=== PATIENT | female | born 1945 | race Caucasian/White ===

== ENCOUNTER 2020-04-02 14:49 | Outpatient (CLI) | payer MEDICARE, SELFPAY ==
--- NOTE | ~2020-04-02 | DEXA_ITS ---
Bone Density Report Name: Taylor Grimes Age: 74 Sex: Female Ethnicity: White Date of : 1945 Indication: postmenopausal; height loss; hysterectomy; Referring Provider: Allan Fu Study: Bone densitometry was performed. Exam Date: April 02, 2020 Accession number: [id number] Bone Density: Region BMD T-score Z-score Classification AP Spine (L1-L4) 0.912 -1.2 1.3 Osteopenia Femoral Neck (Left) 0.570 -2.5 -0.3 Osteoporosis Total Hip (Left) 0.721 -1.8 0.1 Osteopenia Total Hip Bilateral Avg 0.728 -1.8 0.2 Osteopenia Femoral Neck (Right) 0.559 -2.6 -0.4 Osteoporosis Total Hip (Right) 0.734 -1.7 0.2 Osteopenia World Health Organization criteria for BMD impression classify patients as: Normal (T-score at or above -1.0), Osteopenia (T-score between -1.0 and -2.5), or Osteoporosis (T-score at or below -2.5). 10-year Fracture Risk: FRAX not reported because: Some T-score for Spine Total or Hip Total or Femoral Neck at or below -2.5 Clinical Information Provided by Patient: Has used the following medications: Vitamin D Has the following medical conditions: Hysterectomy Patient maximum height was 64 Menopause Age: 42 No regular weight bearing exercise Does not regularly consume dairy products Onset of menses at age 10 Number of children 1 Impression: The patient has osteoporosis, based on the Right Femoral Neck T-score. Discussion: INCREASED RISK OF FRACTURE. BONE DENSITY IS UNDESIRABLY LOW AT ONE OR MORE SKELETAL SITES, CONSISTENT WITH POSTMENOPAUSAL OSTEOPOROSIS. This patient's lowest T-score meets the World Health Organization's (WHO) criteria for osteoporosis at one or more sites (T-score -2.5 or below). In untreated patients, the risk of osteoporotic fracture increases approximately two-fold for each 1.0 SD decrease in T-score. Low bone density is not the only risk factor for fracture; also consider factors such as patient's age, frailty or poor health, risk of falling, risk of injury, previous osteoporotic fracture, family history of osteoporosis, cigarette smoking, low body weight, etc. Not everyone with low bone mineral density has osteoporosis; osteomalacia and other metabolic bone disorders should also be considered. Patients who have osteoporosis should be evaluated for specific diseases and conditions (secondary causes) that may cause or contribute to bone loss. The [place] Association of Clinical Endocrinologists (AACE) and National Osteoporosis Foundation (NOF) recommend pharmacologic intervention for all postmenopausal women whose T-score is in this range. The patient should follow a healthful lifestyle (good nutrition with adequate calcium and vitamin D, and appropriate weight-bearing exercise). Follow-Up: Consider a repeat BMD and Vertebral Fracture Assessment (VFA) exam in 2 years or sooner if medic
== END 2020-04-02 14:50 | disposition home or self-care (01) ==
LOC: ANHIMG 14:53
PROVIDERS: PCP Family Medicine; Visit Provider Family Medicine
DX: Z78.0 Asymptomatic menopausal state (principal); M85.88 Other specified disorders of bone density and structure, other site; M81.0 Age-related osteoporosis without current pathological fracture; M85.852 Other specified disorders of bone density and structure, left thigh; M85.851 Other specified disorders of bone density and structure, right thigh
CPT/HCPCS: 77080

== ENCOUNTER → 2021-03-10 15:16 | Outpatient (CLI) | payer MEDICARE, SELFPAY ==
--- NOTE | ~2021-03-10 | XR_ITS ---
XR hand LT min 3V DATE: 03/10/2021 15:50 INDICATION: Left wrist, hand and finger injury TECHNIQUE: 3 views of left hand COMPARISON: None FINDINGS: There is mild osteoarthritis at the first carpometacarpal joint and more prominent osteoart hritis at the interphalangeal joint of the first digit. Osteoarthritic changes noted at additional in terphalangeal joints. There is narrowing at the first and fifth metacarpophalangeal joints. There is anterior dislocation at the distal interphalangeal joint of the fifth digit with a small cor tical avulsion fracture fragment noted just distal to the head of the middle phalanx and posterior to the anteriorly dislocated distal phalanx. No other fracture or dislocation is detected. Diffuse osteopenia IMPRESSION: Anterior dislocation of small cortical avulsion fracture at the distal interphalangeal shawn int of the fifth digit Polyarticular osteoarthritis Reviewed, dictated and finalized at location A. IMPRESSION: Anterior dislocation of small cortical avulsion fracture at the dis catarina interphalangeal joint of the fifth digit Polyarticular osteoarthritis
== END ==
PROVIDERS: PCP Family Medicine; Visit Provider Physician Assistant
DX: S69.92XA Unspecified injury of left wrist, hand and finger(s), initial encounter (principal); X58.XXXA Exposure to other specified factors, initial encounter; M19.042 Primary osteoarthritis, left hand
CPT/HCPCS: 73130

== ENCOUNTER → 2021-12-30 14:53 | Outpatient (CLI) | payer MEDICARE, SELFPAY ==
--- NOTE | ~2021-12-30 | XR_ITS ---
EXAMINATION: XR chest 2V DATE: 12/30/2021 15:23 INDICATION: Abnormal weight loss TECHNIQUE: frontal and lateral views of the chest were obtained. COMPARISON: None FINDINGS: Couple small calcified nodules in the right upper lung zone consistent with old granulomatous disease . No other airspace opacities, pulmonary edema, pleural effusion or pneumothorax. The cardiomediastin al silhouette is normal. Bilateral peripherally calcified breast implants. Mild thoracolumbar dextroc urvature with mild spondylosis. IMPRESSION: 1. No acute cardiopulmonary disease. Reviewed, dictated and finalized at location B.
== END ==
PROVIDERS: Visit Provider Physician Assistant
DX: R63.4 Abnormal weight loss (principal); Z87.891 Personal history of nicotine dependence
CPT/HCPCS: 71046

== ENCOUNTER 2022-02-17 17:51 | Outpatient (CLI) | payer MEDICARE, SELFPAY ==
--- NOTE | ~2022-02-17 | MM_ITS ---
EXAMINATION: MM screening mammo BI HISTORY: Screening mammogram TECHNIQUE: Bilateral MLO and CC views. CAD analysis was submitted and interpreted. COMPARISON: No prior mammogram is available for comparison at this institution. BREAST PARENCHYMAL COMPOSITION: The breasts are extremely dense, which lowers the sensitivity of mamm ography. FINDINGS: Status post bilateral augmentation mammoplasty. There is calcification of both implants. Th ere is no evidence of suspicious mass, calcification, or architectural distortion to suggest malignan cy in either breast. There has been no suspicious interval change. IMPRESSION: 1. No mammographic evidence of malignancy. 2. Recommend routine screening mammography in one year. BI-RADS Category 1: Negative Reviewed, dictated and finalized at location A.
== END 2022-02-17 17:52 | disposition home or self-care (01) ==
LOC: ANHIMG 17:52
PROVIDERS: PCP Physician Assistant; Visit Provider Physician Assistant
DX: Z12.31 Encounter for screening mammogram for malignant neoplasm of breast (principal)
CPT/HCPCS: 77067

== ENCOUNTER → 2023-02-09 11:15 | Outpatient (CLI) | payer MEDICARE, SELFPAY ==
--- NOTE | ~2023-02-09 | DEXA_ITS ---
Bone Density Report Name: IWONA DAVIS Age: 77 Sex: Female Ethnicity: White Date of : 1945 Indication: osteopenia; hysterectomy;postmenopausal Referring Provider: Allan Fu Study: Bone densitometry was performed. Exam Date: February 09, 2023 Accession number: [id number] Bone Density: Region BMD T-score Z-score Classification AP Spine (L1-L4) 0.931 -1.1 1.6 Osteopenia Femoral Neck (Left) 0.591 -2.3 0.0 Osteopenia Total Hip (Left) 0.711 -1.9 0.2 Osteopenia Femoral Neck (Right) 0.552 -2.7 -0.4 Osteoporosis Total Hip (Right) 0.742 -1.6 0.4 Osteopenia Total Hip Mean 0.727 -1.8 0.3 Osteopenia World Health Organization criteria for BMD impression classify patients as: Normal (T-score at or above -1.0), Osteopenia (T-score between -1.0 and -2.5), or Osteoporosis (T-score at or below -2.5). Previous Exams: Region Exam Age BMD T-score BMD Change BMD Change Date g/cm2 vs Baseline vs Previous AP Spine(L1-L4) 02/09/2023 77 0.931 -1.1 -0.006 0.010 06/16/2017 72 0.921 -1.1 -0.016 -0.024* 03/27/2009 63 0.944 -0.9 0.008 0.008 03/09/2006 60 0.936 -1.0 Total Hip(Left) 02/09/2023 77 0.711 -1.9 -0.096* -0.059* 06/16/2017 72 0.770 -1.4 -0.037* -0.011 03/27/2009 63 0.781 -1.3 -0.027 -0.027 03/09/2006 60 0.808 -1.1 Total Hip(Right) 02/09/2023 77 0.742 -1.6 -0.059* -0.038* 06/16/2017 72 0.780 -1.3 -0.021 0.025 03/27/2009 63 0.755 -1.5 -0.046* -0.046* 03/09/2006 60 0.801 -1.2 *Denotes significance at 95% confidence level, LSC for AP Spine = 0.022 g/cm2, LSC for Total Hip = 0.027 g/cm2 Clinical Information Provided by Patient: Has used the following medications: HRT (i.e. estrogen/hormone therapy), Vitamin D, Calcium Has the following medical conditions: Hysterectomy Patient maximum height was 64 Menopause Age: 42 No regular weight bearing exercise Drinks caffeinated beverages Onset of menses at age 10 Number of children 1 Impression: The patient has osteoporosis, based on the Right Femoral Neck T-score. The BMD for the Total Hip(Left) decreased, changing by -0.059 since the last DXA exam. The BMD for the Total Hip(Right) decreased, changing by -0.038 since the last DXA exam. Discussion: INCREASED RISK OF FRACTURE. BONE DENSITY IS UNDESIRABLY LOW AT ONE OR MORE SKELETAL SITES, CONSISTENT WITH POSTMENOPAUSAL OSTEOPOROSIS. This patient's lowest T-score meets the World Health Organi
== END ==
PROVIDERS: PCP Family Medicine; Visit Provider Family Medicine
DX: M85.88 Other specified disorders of bone density and structure, other site (principal); M85.852 Other specified disorders of bone density and structure, left thigh; M85.851 Other specified disorders of bone density and structure, right thigh; M81.0 Age-related osteoporosis without current pathological fracture
CPT/HCPCS: 77080

== ENCOUNTER → 2023-05-03 13:59 | Outpatient (CLI) | payer MEDICARE, SELFPAY ==
--- NOTE | ~2023-05-03 | MM_ITS ---
EXAMINATION: MM scrn mandy implant BI w claire HISTORY: Screening mammogram TECHNIQUE: Craniocaudal and mediolateral oblique 3-D tomosynthesis images with implant displacement a nd synthetic 2-D images were generated. Craniocaudal and mediolateral oblique views of the breasts wi thout implant displacement were obtained using full field digital mammography. CAD analysis was submi tted and interpreted. COMPARISON: 02/17/2022 BREAST PARENCHYMAL COMPOSITION: The breasts are extremely dense, which lowers the sensitivity of mamm ography. FINDINGS: There is no evidence of suspicious mass, calcification, or architectural distortion to sugg est malignancy in either breast. There has been no suspicious interval change. IMPRESSION: 1. No mammographic evidence of malignancy. 2. Recommend routine screening mammography while the patient remains in good health. BI-RADS Category 1: Negative Reviewed, dictated and finalized at location A. IMPRESSION: 1. No mammographic evidence of malignancy. 2. Recommend routine screening mammography while the patient remains in good he alth. BI-RADS Category 1: Negative
== END ==
PROVIDERS: PCP Physician Assistant; Visit Provider Obstetrics & Gynecology
DX: Z12.31 Encounter for screening mammogram for malignant neoplasm of breast (principal)
CPT/HCPCS: 77063; 77067

== ENCOUNTER 2023-12-15 14:36 | Outpatient (CLI) | payer MEDICARE, SELFPAY ==
--- NOTE | ~2023-12-15 | XR_ITS ---
XR finger 1st LT min 2V DATE: 12/15/2023 14:56 INDICATION: Pain of left first digit TECHNIQUE: 3 views of first digit COMPARISON: None FINDINGS: Prominent osteoarthritic changes noted at the first carpometacarpal, first metacarpophalang eal and interphalangeal joints. There are calcifications surrounding the interphalangeal joint of the first digit. No fracture, dislocation, periosteal reaction or bone destruction is evident. IMPRESSION: Soft tissue calcification surrounding interphalangeal joint of thumb Polyarticular osteoarthritis Reviewed, dictated and finalized at location B. IMPRESSION: Soft tissue calcification surrounding interphalangeal joint of thum b Polyarticular osteoarthritis
--- NOTE | ~2023-12-15 | XR_ITS ---
XR hand LT min 3V DATE: 12/15/2023 14:56 INDICATION: Pain of the fingers. TECHNIQUE: 3 views COMPARISON: 03/10/2021 left hand FINDINGS: Chronic anterior dislocation at the distal interphalangeal joint of the fifth digit, presen t on 03/10/2021, with subsequent fusion of the middle and distal phalanges of the fifth digit since .. There is osteoarthritis including joint space narrowing and mild spurring at multiple interphalangeal joints as well as the first carpometacarpal joint. No recent fracture or dislocation, periosteal reaction or bone destruction, erosive change or chondro calcinosis is detected.. IMPRESSION: Chronic anterior dislocation/fusion at distal interphalangeal joint of fifth digit Polyarticular osteoarthritis Reviewed, dictated and finalized at location B.
== END 2023-12-15 14:37 ==
LOC: MICIMG 14:38
PROVIDERS: PCP Physician Assistant; Visit Provider Physician Assistant
DX: M79.645 Pain in left finger(s) (principal); M19.042 Primary osteoarthritis, left hand
CPT/HCPCS: 73130; 73140

== ENCOUNTER 2024-02-05 13:26 | Outpatient (CLI) | payer MEDICARE, SELFPAY ==
--- NOTE | ~2024-02-05 | US_ITS ---
EXAMINATION: US right upper quadrant DATE: 02/05/2024 13:46 INDICATION: Abnormal levels of other serum enzymes. TECHNIQUE: Multiple grayscale and Doppler ultrasound images of the abdomen were obtained. COMPARISON: None FINDINGS: Abdominal aorta is normal in caliber. The inferior vena cava is normal. The visualized port ions of the head, body, and tail of the pancreas are normal. The liver is normal without focal lesion . No liver surface nodularity. There is normal flow in main portal vein. The gallbladder is normal in size. No gallstones or gallbladder wall thickening. There is no sonographic Lara's sign. The commo n duct is normal and measures 2 mm. There is a 10.5 cm cyst in right kidney. IMPRESSION: 1. No etiology for abnormal liver function tests. Reviewed, dictated and finalized at location A.
== END 2024-02-05 13:27 ==
LOC: MICIMG 13:27
PROVIDERS: PCP Physician Assistant; Visit Provider Physician Assistant
DX: R74.8 Abnormal levels of other serum enzymes (principal)
CPT/HCPCS: 76705

== ENCOUNTER 2024-12-23 13:03 | Outpatient (CLI) | payer MEDICARE, SELFPAY ==
--- OUTSIDE RECORDS SUMMARY | 2024-12-23 14:13 | XMS_ITS | Encounter Summary ---
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 Historical Provider Final Res ult documented in this encounter Visit Diagnoses Not on filedocumented in this encounter Care Teams Copy Holder Relationship Specialty Start Date End Date Allan Fu MD [address] [facility] [place] [address] [place] [address] PCP - General Family Medicine 03/29/19 documented as of this encounter
--- OUTSIDE RECORDS SUMMARY | 2024-12-23 14:13 | XMS_ITS | Clinical Summary ---
Author Organization [facility] Address [address] [place] [id number] Care Team Providers Care Shredded Filler Hopper Feeder Name Role Phone Allan Fu MD Primary Care Provider Allergies Active Allergy Reactions Criticality Noted Date Comments Metoprolol Dizziness Low 12/24/2018 dizziness Niacin Flushing (skin) Low 12/24/2018 Rosuvastatin Rash Medium 12/24/2018 rash Medications PARoxetine (PAXIL) 20 mg tablet 1 tablet (20 mg total) every morning Active MYRBETRIQ 50 mg tablet extended release 24 hr TAKE 1 TABLET BY MOUTH ONCE DAILY SWALLOWING WHOLE WITH WATER. DO NOT CRUSH CHEW AND OR DIVIDE 2 05/23/20 19 Active cholecalciferol (VITAMIN D-3) 1,000 unit capsule 1 capsule (1,000 Units total) daily Active calcium carbonate (OS-BLOSSOM) 1,250 MG (500 mg of elemental calcium) tablet 500 mg 2 (two) times a day Active ascorbic acid (VITAMIN C) 500 mg tablet,chewable 1 tablet/chew tab (500 mg total) daily Active cranberry fruit extract (CRANBERRY EXTRACT) 250 mg capsule 1 capsule (250 mg total) Active coenzyme Q10 200 mg capsule daily Active biotin 1 mg capsule daily Active alendronate (FOSAMAX) 70 mg tablet TAKE 1 TABLET BY MOUTH ONCE A WEEK 03/05/20 21 Active memantine XR (NAMENDA XR) 7 mg capsule,sprinkle,ER 24hr Take by mouth daily 03/09/20 21 Active ezetimibe (ZETIA) 10 mg tablet TAKE 1 TABLET BY MOUTH ONCE DAILY. NEEDS APPOINTMENT. 90 tablet 02/29/20 22 Active aspirin 81 mg enteric coated tablet Take 1 tablet (81 mg total) by mouth daily Active atorvastatin (LIPITOR) 80 mg tabletIndications:Dysli pidemia Take 1 tablet by mouth once daily 90 tablet 11/21/19 24 Active metoprolol XL (TOPROL-XL) 25 mg extended release tabletIndications:Coron [place] artery disease involving [place] coronary artery of [place] heart without angina pectoris,Dyslipidemia,P alpitations,Pure hypercholesterolemia Take 1/2 (one-half) tablet by mouth once daily 45 tablet 01/31/20 24 Active Active Problems Problem Noted Date Diagnosed Date Hypokalemia 11/09/2022 Pure hypercholesterolemia 06/29/2022 Anemia 06/29/2022 Hyponatremia 06/29/2022 Dizzy spells 08/14/2019 Chest pain 08/14/2019 Coronary artery disease invo lving [place] coronary artery of [place] heart without angina pectoris 02/18/2016 Overview (08/01/2019): With minimal coronary artery disease in the diagonal branch and left circumflex artery 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 basis which does improve her symptoms Elevated liver enzymes 02/18/2016 Overview (11/09/2022): Now normalized on atorvastatin Raynauds syndrome 02/18/2016 Overview (11/09/2022): Better with warmer weather Syncope 02/18/2016 Overview (11/09/2022): Without recurrence Postural dizziness 02/18/2016 Overview (11/09/2022): improved with taking her off of metoprolol, fall in January of this year Surgical History Surgery Date Site/Laterality Comments HYSTERECTOMY TONSILLECTOMY Medical History Medical History Date Comments Coronary artery disease Hyperlipidemia Family History Medical History Relation Name Comments Heart disease Father Hypertension Mother Relation Name Status Comments Father Mother Social History Tobacco Use Types Packs/Day Years Used Date Smoking Tobacco: Former Smokeless Tobacco: Never Personal Safety Answer Date Recorded Getting School Help Needed Not on file 11/04 Comments Unknown Sex and Gender Information Value Date Recorded Sex Assigned at Not on file Legal Sex Female 10:46 PM BLIND ESCORT Gender Identity Not on file Sexual Orientation Not on file Obstetrics History Last Filed Vital Signs Vital Sign Reading Time Taken Comments Blood Pressure 102/62 03/15/2023 3:08 PM CDT Pulse 80 03/15/2023 3:08 PM CDT Temperature 36.1 C (96.9 F) 01/07/2015 2:45 PM CDT Respiratory Rate - - Oxygen Saturation 97% 03/15/2023 3:08 PM CDT Inhaled Oxygen Concentration - - Weight 42.6 kg (94 lb) 03/15/2023 3:08 PM CDT Height 165.1 cm (5' 5 ) 06/29/2022 3:17 PM CDT Body Mass Index 15.64 06/29/2022 3:17 PM CDT Plan of Treatment Health Maintenance Due Date Last Done Comments Depression Screening 1945 Fall Risk Assessment 1945 Osteoporosis Screening-Bone Density Scan 1945 DTaP/Tdap/Td Vaccine (1 - Tdap) 1954 Hepatitis B Screening 1961 Zoster Vaccine (1 of 2) 1993 Well Visit 65+ 2008 Influenza Vaccine (#1) 2024 9, 07/04/2018, 07/06/2017, Additional history exists Pneumococcal vaccine 65+ Completed 06/29/2017, 09/2015 Insurance [employer] MEDICARE Advance Directives For more information, please contact: [phone] Documents on File Type Date Recorded Patient Medical Technicians Expl anation ADVANCE DIRECTIVE 01/14/2015 12:00 AM [employer] OFFICER FINANCIAL/MEDICAL Care Teams Shredded Filler Hopper Feeder Relationship Specialty Start Date End Date Allan Fu MD [address] [facility] [address] [place] [address] PCP - General Family Medicine 03/29/19
--- OUTSIDE RECORDS SUMMARY | 2024-12-23 14:13 | XMS_ITS | Encounter Summary ---
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 Historical Provider Final Res ult * SCAN - LABS (02/26/2016 12:00 AM CDT) Narrative 02/26/2016 12:00 AM CDT Ordered by an unspecified provider. us Historical Provider MD Final Res ult documented in this encounter Visit Diagnoses Not on filedocumented in this encounter Care Teams Printing Services Coordinator Relationship Specialty Start Date End Date Allan Fu MD [address] [facility] [address] [place] [address] PCP - General Family Medicine 03/29/19 documented as of this encounter
--- OUTSIDE RECORDS SUMMARY | 2024-12-23 14:13 | XMS_ITS | Encounter Summary ---
Author Organization [facility] Address [address] [facility] [address] [place] [address] Care Team Providers Care Women'S Swim Coach Name Role Phone Allan Fu MD Primary Care Provider Encounter Details Date Type Department Care Team (Late st Contact Info) Description 11/17/2008 Orders Only [facility] [address] [place] [address] Scanning, Provider Social History Tobacco Use Types Packs/Day Years Used Date Smoking Tobacco: Never Assessed Comments Unknown Sex and Gender Information Value Date Recorded Sex Assigned at Not on file Legal Sex Female 10:46 PM LABORER POLE CREW Gender Identity Not on file Sexual Orientation Not on file documented as of this encounter Plan of Treatment Not on file documented as of this encounter Procedures Procedure Name Priority Date/Time Associated Diagnosis Comments CARDIOLOGY DOCUMENT SCAN 11/17/2008 documented in this encounter Results * SCAN - CARDIOLOGY (11/17/2008) Anatomical Region Laterality Modality Other us Provider Scanning CV CARDIAC SERVICES PROCEDURES Final Result documented in this encounter Visit Diagnoses Not on filedocumented in this encounter Care Teams Women'S Swim Coach Relationship Specialty Start Date End Date Allan Fu MD [address] [facility] [address] [place] [address] PCP - General Family Medicine 03/29/19 documented as of this encounter
--- OUTSIDE RECORDS SUMMARY | 2024-12-23 14:13 | XMS_ITS | Clinical Summary ---
Author Organization [facility] Address [address] [place] [id number] Care Team Providers Care Senior Net Application Developer Name Role Phone Unavailable Primary Care Provider Unavailabl e Social History Tobacco Use Types Packs/Day Years Used Date Smoking Tobacco: Never Assessed Comments Unknown Sex and Gender Information Value Date Recorded Sex Assigned at Not on file Legal Sex Female 8:08 PM CDT Gender Identity Not on file Sexual Orientation Not on file Plan of Treatment Health Maintenance Due Date Last Done Comments DTaP, Tdap and Td Vaccines ( 1 - Tdap) 1962 Zoster Vaccines (1 of 2) 1993 Dexa Scan (General) 2008 Pneumococcal Vaccine: 65+ Ye ars (1 of 1 - PCV) 2008 RSV Immunization or 60+ Years (1 - 1-dose 75+ series) 2018 COVID-19 Vaccine (2023-2 5 season) 2024 Influenza Adult (#1) 2024 Meningococcal B Vaccine Aged Out No l onger eligible based on patient's age to complete this topic Meningococcal Vaccine Aged Out No nakia beatriz eligible based on patient's age to complete this topic RSV Immunizations Under 20 Months Aged Out No longer eligible based on patient's age to complete this topic
--- OUTSIDE RECORDS SUMMARY | 2024-12-23 14:13 | XMS_ITS | Data Portability ---
[facility] Address [address] [place] [address] Assessment Encounter Date Assessment Date Assessment LastModified by Organization Details LastModified Time 11/22/2023 11/22/2023 Labs completed o n 11/15/2023 WBC 5.2, Hgb(11.5), Platelets 244, glucose 75, BUN 13, creatinine 0.90, sodium 141, potassium 4.6, chloride 105, Co2 29, calcium 9.1, protein 6.1, Albumin 3.9, Bilirubin 0.6, Alk Phos(156), AST(59), ALT(33), cholesterol 150, HDL 58, LDL 78, Trig 55 Laboratories done on 01/25/2023, AST 45 and ALT 57 Laboratories done 01/10/2023 alkaline phosphatase 80, AST 45, ALT 51, cholesterol 143, HDL 54, triglycerides 65, LDL 75. ECG done on on 11/22/2023 shows sinus bradycardia with rate of 50 bpm, septal Q wave. 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 on cardiac catheterization done on 01/09/2015, with a combination treadmill/Lexiscan Myoview stress test being negative for ischemia on 09/12/2019, asymptomatic on medical therapy Postural dizziness - R42, improved with reducing her metoprolol dose from 25 mg daily down to 12.5 mg daily Palpitations - R00.2, well controlled currently on Slow-Mag, and metoprolol Abnormal EKG - R94.31, False-positive EKG for ischemia with a normal Myoview scan Syncope - R55, Without recurrence Pure Hypercholesterolemia - E78.00, on 80 mg of atorvastatin and 10 mg of Zetia with LDL just above ideal goal Mitral valve prolapse - I34.1, History of Hypokalemia, normalized off supplementation Raynauds syndrome - I73.00, Better with warmer weather Elevated liver enzymes - R74.8, were mildly elevated on her atorvastatin Anemia with no obvious source of bleeding, she is going to follow-up with her primary care physician regarding this. Plan: I recommend she follow a healthy diet which is low in fat, low in sodium and low in caffeine. She is somewhat bradycardic but asymptomatic it seems to have controlled her palpitations so I will continue her on her current dose of metoprolol succinate 12.5 mg daily. It is Unclear why she is wearing his 14-day event monitor which was put on by her insurance company she had no history of palpitations, no syncope and no history of neurologic events. I just asked that they get a copy of the monitor results to me since she is currently wearing it and having it done. I told to wear gloves when she goes outside in light of her Raynauds. I asked her to drink plenty of fluids. I would like her to stay active and try to exercise regularly. Since her LDL for the last 2 checks is not at ideal goal and she does have mildly elevated liver transaminases on atorvastatin I will discontinue the atorvastatin I will place her on rosuvastatin 20 mg daily I would like to check an AST and ALT 4 weeks after making this change. I asked her to stop the rosuvastatin if she has any muscle pains or weakness. In the meantime, I told her to stay on the Zetia 10 mg daily, metoprolol succinate 25 mg half tablet daily and the aspirin 81 mg daily. I asked her to return in 3 months time and obtain a fasting lipid profile, cpk and a complete metabolic profile prior to her follow-up visit. I asked her to return sooner if she has any cardiac issues or problems. CARDIOLOGY TESTING ECHOCARDIOGRAM ECHO: 11/17/08 normal left ventricle systolic function. COMBINATION OF TREADMILL/LEXISCAN MYOVIEW STRESS TEST 09/12/2019 with positive electrocardiographic portion of a treadmill and a combination of Lexiscan stress with patient walking 10 minutes on the treadmill the unable to obtain a desired heart rate only achieving 74% of her age predicted maximal heart rate so Lexiscan was given with [address] segment depressions which were no longer significant within 2 minutes into the recovery phase. There were no arrhythmias, no chest pain or chest pressure, adequate exercise tolerance only limited by shortness of breath and leg fatigue. Blunted heart rate spots exercise is as she only attained 74% of her age predicted maximal heart rate so Lexiscan was giving his distraction agent. Normal blood pressure appropriate blood pressure month exercise, Myoview images showed no evidence of ischemia left ventricle. Basal inferoseptal defect noted in the supine rest image likely due to loop a bowel obscuring the inferoseptal wall noted also in the supine stress image but to a lesser degree and prone imaging shows resolution of this defect with normal inferior and septal wall motion so this is most consistent with artifact from the loop a bowel obscuring part of the inferoseptal wall in the supine images. Normal left ventricular cavity size, wall motion and calculated left ventricular systolic ejection fraction of greater than 65% STRESS TEST MYOVIEW: 12/23/14 positive ecg portion with 3mm of inferolateral st segment depressions with prolonged normalization in the recovery phase suspicious for ischemia, normal blood pressure with appropriate blood pressure response to exercise, normal chronotropic response to exercise, no chest pain or pressure with exercise, shortness of breath limited her exercise capacity, no evidence of ischemia or infarction of left ventricle, normal left ventricle cavity size, wall motion and calculated lvef of 72% STRESS TEST : MYOVIEW: 05/23/11 negative lvef is 65% STRESS TEST MYOVIEW: 05/04/09 negative stress ef of 77%. 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 which is codominant coming off the noncoronary cusp, but no significant angiographic stenosis, normal left ventricular cavity size, wall motion and estimated left ventricular systolic ejection fraction of 70-75%, ballerina type deformity noted on left ventricular cineangiogram of the mitral valve consistent with mitral valve prolapse, balance coronary dominance, no significant aortic stenosis noted on pullback across the aortic valve, no significant mitral regurgitation noted on left ventricular cineangiogram, normal left ventricular end-diastolic pressure of 9 mmHg, normal systemic arterial blood pressure and aortic pressure of 133/55 mmHg. Not available 11/22/2023 16:07:13 02/22/2024 02/22/2024 Labs completed o n 02/13/2024 AST 30, ALT 16 Labs completed on 01/22/2024 AST 96, ALT 74 Labs completed on 11/15/2023 WBC 5.2, Hgb(11.5), Platelets 244, glucose 75, BUN 13, creatinine 0.90, sodium 141, potassium 4.6, chloride 105, Co2 29, calcium 9.1, protein 6.1, Albumin 3.9, Bilirubin 0.6, Alk Phos(156), AST(59), ALT(33), cholesterol 150, HDL 58, LDL 78, Trig 55 Laboratories done on 01/25/2023, AST 45 and ALT 57 Laboratories done 01/10/2023 alkaline phosphatase 80, AST 45, ALT 51, cholesterol 143, HDL 54, triglycerides 65, LDL 75. ECG done on on 11/22/2023 shows sinus bradycardia with rate of 50 bpm, septal Q wave. 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 on cardiac catheterization done on 01/09/2015, with a combination treadmill/Lexiscan Myoview stress test being negative for ischemia on 09/12/2019, asymptomatic on medical therapy Postural dizziness - R42, improved with reducing her metoprolol dose from 25 mg daily down to 12.5 mg daily Palpitations - R00.2, well controlled currently on Slow-Mag, and metoprolol Abnormal EKG - R94.31, False-positive EKG for ischemia with a normal Myoview scan Syncope - R55, Without recurrence Pure Hypercholesterolemia - E78.00, on 80 mg of atorvastatin and 10 mg of Zetia with LDL just above ideal goal and also had elevated liver transaminases on rosuvastatin 20 mg daily Mitral valve prolapse - I34.1, History of Hypokalemia, normalized off supplementation Raynauds syndrome - I73.00, Better with warmer weather Elevated liver enzymes - R74.8, were mildly elevated on her atorvastatin and also on rosuvastatin 20 mg daily. Anemia with no obvious source of bleeding, she is going to follow-up with her primary care physician regarding this. Plan: I recommend she follow a healthy diet which is low in fat, low in sodium and low in caffeine. I asked her to go back on rosuvastatin but we will place her just on 5 mg daily. I told her she is any muscle pains or weakness to stop the rosuvastatin. I asked her also to continue the Zetia at 10 mg daily. I will check an liver profile 4 weeks after initiating therapy with the rosuvastatin to be sure liver transaminases are fine. I will also continue her metoprolol succinate 25 mg half tablet daily and the aspirin 81 mg daily. I asked her to return in 3 months time and obtain a fasting lipid profile, cpk and , CBC a complete metabolic profile prior to her follow-up visit. I asked her to return sooner if she has any cardiac issues or problems. CARDIOLOGY TESTING ECHOCARDIOGRAM 11/17/08 normal left ventricle systolic function. COMBINATION OF TREADMILL/LEXISCAN MYOVIEW STRESS TEST 09/12/2019 with positive electrocardiographic portion of a treadmill and a combination of Lexiscan stress with patient walking 10 minutes on the treadmill the unable to obtain a desired heart rate only achieving 74% of her age predicted maximal heart rate so Lexiscan was given with [address] segment depressions which were no longer significant within 2 minutes into the recovery phase. There were no arrhythmias, no chest pain or chest pressure, adequate exercise tolerance only limited by shortness of breath and leg fatigue. Blunted heart rate spots exercise is as she only attained 74% of her age predicted maximal heart rate so Lexiscan was giving his distraction agent. Normal blood pressure appropriate blood pressure month exercise, Myoview images showed no evidence of ischemia left ventricle. Basal inferoseptal defect noted in the supine rest image likely due to loop a bowel obscuring the inferoseptal wall noted also in the supine stress image but to a lesser degree and prone imaging shows resolution of this defect with normal inferior and septal wall motion so this is most consistent with artifact from the loop a bowel obscuring part of the inferoseptal wall in the supine images. Normal left ventricular cavity size, wall motion and calculated left ventricular systolic ejection fraction of greater than 65% STRESS TEST MYOVIEW: 12/23/14 positive ecg portion with 3mm of inferolateral st segment depressions with prolonged normalization in the recovery phase suspicious for ischemia, normal blood pressure with appropriate blood pressure response to exercise, normal chronotropic response to exercise, no chest pain or pressure with exercise, shortness of breath limited her exercise capacity, no evidence of ischemia or infarction of left ventricle, normal left ventricle cavity size, wall motion and calculated lvef of 72% STRESS TEST MYOVIEW: 05/23/11 negative lvef is 65% STRESS TEST MYOVIEW: 05/04/09 negative stress ef of 77%. 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 coming off the noncoronary cusp, but no significant angiographic stenosis, normal left ventricular cavity size, wall motion and estimated left ventricular systolic ejection fraction of 70-75%, ballerina type deformity noted on left ventricular cineangiogram of the mitral valve consistent with mitral valve prolapse, balance coronary dominance, no significant aortic stenosis noted on pullback across the aortic valve, no significant mitral regurgitation noted on left ventricular cineangiogram, normal left ventricular end-diastolic pressure of 9 mmHg, normal systemic arterial blood pressure and aortic pressure of 133/55 mmHg Not available 02/22/2024 16:18:30 05/28/2024 05/28/2024 LABS: 05/21/24. Cholesterol 172, HDL 81, triglycerides 60, LDL 77, glucose 86, BUN 14, creatinine 0.91, EGFR 63, sodium 143, potassium 4.6, chloride 107, carbon dioxide 31, calcium 9.1, protein 6.2, albumin 4.1, globulin 2.1, bilirubin 0.7, alkaline phosphate 51, AST 37, ALT 21, CK 67, WBC 4.7, hemoglobin 11.3, hematocrit 35.2, platelet count 176. LABS: 04/03/24. Total protein 6.7, albumin 4.4, globulin 2.3, total bilirubin 0.9, direct bilirubin 0.1, indirect bilirubin 0.8, alkaline phosphate 57, AST 45, ALT 19. Labs completed on 02/13/2024 AST 30, ALT 16 Labs completed on 01/22/2024 AST 96, ALT 74 Labs completed on 11/15/2023 WBC 5.2, Hgb(11.5), Platelets 244, glucose 75, BUN 13, creatinine 0.90, sodium 141, potassium 4.6, chloride 105, Co2 29, calcium 9.1, protein 6.1, Albumin 3.9, Bilirubin 0.6, Alk Phos(156), AST(59), ALT(33), cholesterol 150, HDL 58, LDL 78, Trig 55 Laboratories done on 01/25/2023, AST 45 and ALT 57 Laboratories done 01/10/2023 alkaline phosphatase 80, AST 45, ALT 51, cholesterol 143, HDL 54, triglycerides 65, LDL 75. ECG done on on 11/22/2023 shows sinus bradycardia with rate of 50 bpm, septal Q wave. 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 Eating cheese frequently. Mitral valve prolapse - I34.1, History of Raynauds syndrome - I73.00, Elevated liver enzymes - R74.8, were mildly elevated on her atorvastatin and also on rosuvastatin 20 mg daily. Anemia with no obvious source of bleeding, she is going to follow-up with her primary care physician regarding this. Plan: I recommend she follow a healthy diet which is low in fat, low in sodium and low in caffeine. I asked her to continue on rosuvastatin 20 mg daily and Zetia 10 mg daily as well as metoprolol succinate 25 mg half tablet daily and aspirin 81 mg daily. Her LDL is not at ideal goal however she admits she has been eating cheese in the form of broccoli and she is frequently of late. I asked her to try to reduce or abstain from eating cheese to see if this improves her lipids and get her LDL under 70 mg/dL without increasing her lipid lowering therapy. With regards to her Raynaud's I asked her to keep her hands warm and to use gloves during the wintertime I asked her to return in 6 months time and obtain a fasting lipid profile, cpk and , CBC a complete metabolic profile prior to her follow-up visit. I will obtain a 2D echo Doppler prior her follow-up visit. I asked her to return sooner if she has any cardiac issues or problems. CARDIOLOGY TESTING ECHOCARDIOGRAM 11/17/08 normal left ventricle systolic function. COMBINATION OF TREADMILL/LEXISCAN MYOVIEW STRESS TEST 09/12/2019 with positive electrocardiographic portion of a treadmill and a combination of Lexiscan stress with patient walking 10 minutes on the treadmill the unable to obtain a desired heart rate only achieving 74% of her age predicted maximal heart rate so Lexiscan was given with [address] segment depressions which were no longer significant within 2 minutes into the recovery phase. There were no arrhythmias, no chest pain or chest pressure, adequate exercise tolerance only limited by shortness of breath and leg fatigue. Blunted heart rate spots exercise is as she only attained 74% of her age predicted maximal heart rate so Lexiscan was giving his distraction agent. Normal blood pressure appropriate blood pressure month exercise, Myoview images showed no evidence of ischemia left ventricle. Basal inferoseptal defect noted in the supine rest image likely due to loop a bowel obscuring the inferoseptal wall noted also in the supine stress image but to a lesser degree and prone imaging shows resolution of this defect with normal inferior and septal wall motion so this is most consistent with artifact from the loop a bowel obscuring part of the inferoseptal wall in the supine images. Normal left ventricular cavity size, wall motion and calculated left ventricular systolic ejection fraction of greater than 65% STRESS TEST MYOVIEW: 12/23/14 positive ecg portion with 3mm of inferolateral st segment depressions with prolonged normalization in the recovery phase suspicious for ischemia, normal blood pressure with appropriate blood pressure response to exercise, normal chronotropic response to exercise, no chest pain or pressure with exercise, shortness of breath limited her exercise capacity, no evidence of ischemia or infarction of left ventricle, normal left ventricle cavity size, wall motion and calculated lvef of 72% STRESS TEST MYOVIEW: 05/23/11 negative lvef is 65% STRESS TEST MYOVIEW: 05/04/09 negative stress ef of 77%. 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 coming off the noncoronary cusp, but no significant angiographic stenosis, normal left ventricular cavity size, wall motion and estimated left ventricular systolic ejection fraction of 70-75%, ballerina type deformity noted on left ventricular cineangiogram of the mitral valve consistent with mitral valve prolapse, balance coronary dominance, no significant aortic stenosis noted on pullback across the aortic valve, no significant mitral regurgitation noted on left ventricular cineangiogram, normal left ventricular end-diastolic pressure of 9 mmHg, normal systemic arterial blood pressure and aortic pressure of 133/55 mmHg Not available 05/28/2024 16:29:14 12/10/2024 12/10/2024 Labs completed 12/03/2024 Glucose 87, BUN 12, Creatinine 0.86, eGFR 68, Sodium 142, Potassium 4.1, Chloride 104, Co2 31, Calcium 9.1, protein 6.7, Albumin 4.4, Bilirubin 0.7, Alk phos 103, AST 39, ALT 22, WBC 4.6, Hgb 11.7, Hct 35.9, Plt 221, Cholesterol 149, Triglycerides 65, HDL 83, LDL 52 LABS: 05/21/24. Cholesterol 172, HDL 81, triglycerides 60, LDL 77, glucose 86, BUN 14, creatinine 0.91, EGFR 63, sodium 143, potassium 4.6, chloride 107, carbon dioxide 31, calcium 9.1, protein 6.2, albumin 4.1, globulin 2.1, bilirubin 0.7, alkaline phosphate 51, AST 37, ALT 21, CK 67, WBC 4.7, hemoglobin 11.3, hematocrit 35.2, platelet count 176. LABS: 04/03/24. Total protein 6.7, albumin 4.4, globulin 2.3, total bilirubin 0.9, direct bilirubin 0.1, indirect bilirubin 0.8, alkaline phosphate 57, AST 45, ALT 19. ECG done on 12/10/2024 shows sinus rhythm with a rate of 62 beats per minute, septal infarction, age indeterminate, compared to the previous EKG done on 11/22/2023, the heart rate has increased by 12 beats per minute otherwise no other significant changes. 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 Mitral valve prolapse - I34.1, History of with no evidence of mitral valve prolapse on her last echocardiogram done 06/17/2024 Raynauds syndrome - I73.00, Elevated liver enzymes - R74.8, were mildly elevated on her atorvastatin and also on rosuvastatin 20 mg daily. Anemia with no obvious source of bleeding, management per primary care physician regarding this. Osteoporosis on monthly injections Plan: I recommend she follow a healthy diet which is low in fat, low in sodium and low in caffeine. I recommend regular exercise but I asked her to stay as active as possible. I told her to avoid losing any weight and in fact I would recommend she gained some weight although she is reluctant to do so. I recommend she continue on her current medical regimen including rosuvastatin 20 mg daily, Ezetimibe 10 mg daily, metoprolol succinate 25 mg half tablet daily and aspirin 81 mg daily. In light of her Raynaud's I asked her to keep her hands warm especially in the cold weather and use gloves and socks.I asked her to return in 6 months time and obtain a fasting lipid profile, CBC a complete metabolic profile prior to her follow-up visit. I asked her to return sooner if she has any cardiac issues or problems. CARDIOLOGY TESTING ECHOCARDIOGRAM 06/17/2024 Mildly dilated atrium. Normal left ventricular size, wall thickness and systolic function. Diastolic function is indeterminate. Total wall motion score is 1.00. There are no regional wall motion abnormalities. Normal right ventricular size and systolic function. There is no evidence of mitral valve prolapse. Aortic cusps appear mildly calcified. No aortic regurgitation seen. there is no evidence of aortic valve stenosis. ECHOCARDIOGRAM 11/17/08 normal left ventricle systolic function. COMBINATION OF TREADMILL/LEXISCAN MYOVIEW STRESS TEST 09/12/2019 with positive electrocardiographic portion of a treadmill and a combination of Lexiscan stress with patient walking 10 minutes on the treadmill the unable to obtain a desired heart rate only achieving 74% of her age predicted maximal heart rate so Lexiscan was given with [address] segment depressions which were no longer significant within 2 minutes into the recovery phase. There were no arrhythmias, no chest pain or chest pressure, adequate exercise tolerance only limited by shortness of breath and leg fatigue. Blunted heart rate spots exercise is as she only attained 74% of her age predicted maximal heart rate so Lexiscan was giving his distraction agent. Normal blood pressure appropriate blood pressure month exercise, Myoview images showed no evidence of ischemia left ventricle. Basal inferoseptal defect noted in the supine rest image likely due to loop a bowel obscuring the inferoseptal wall noted also in the supine stress image but to a lesser degree and prone imaging shows resolution of this defect with normal inferior and septal wall motion so this is most consistent with artifact from the loop a bowel obscuring part of the inferoseptal wall in the supine images. Normal left ventricular cavity size, wall motion and calculated left ventricular systolic ejection fraction of greater than 65% STRESS TEST MYOVIeW: 12/23/14 positive ecg portion with 3mm of inferolateral st segment depressions with prolonged normalization in the recovery phase suspicious for ischemia, normal blood pressure with appropriate blood pressure response to exercise, normal chronotropic response to exercise, no chest pain or pressure with exercise, shortness of breath limited her exercise capacity, no evidence of ischemia or infarction of left ventricle, normal left ventricle cavity size, wall motion and calculated lvef of 72% STRESS TEST MYOVIEW: 05/23/11 negative lvef is 65% STRESS TEST MYOVIEW: 05/04/09 negative stress ef of 77%. 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 coming off the noncoronary cusp, but no significant angiographic stenosis, normal left ventricular cavity size, wall motion and estimated left ventricular systolic ejection fraction of 70-75%, ballerina type deformity noted on left ventricular cineangiogram of the mitral valve consistent with mitral valve prolapse, balance coronary dominance, no significant aortic stenosis noted on pullback across the aortic valve, no significant mitral regurgitation noted on left ventricular cineangiogram, normal left ventricular end-diastolic pressure of 9 mmHg, normal systemic arterial blood pressure and aortic pressure of 133/55 mmHg Not available 12/10/2024 16:33:44 Plan of Treatment Reminders Order Date Submit Date Provider Last Modified By Organization Details Last Modified Time Details Appointments ANY 15 2024 01:45P Marcela Braga MD Not available Not available Not available Lab lipid panel, serum 2024 025 [email or web address] [facility], [address], [place], [address], 12/10/2024 16:33:08 CMP, serum or plasma 2024 025 [email or web address] [facility], [address], [place], [address], 12/10/2024 16:33:09 CBC w/ auto diff 2024 025 [email or web address] [facility], [address], [place], [address], 12/10/2024 16:33:09 CMP, serum or plasma 2023 025 [employer] [facility], [address], [place], [address], 12/02/2024 07:38:47 lipid panel, serum 2023 025 [facility], [address], [place], [address], 12/02/2024 07:38:48 CBC 2023 025 [employer] [facility], [address], [place], [address], 12/02/2024 07:38:47 hepati c functi on panel, serum 2023 024 [employer] [facility], [address], [place], [address], 04/04/2024 09:20:27 lipid panel, serum 2023 024 [employer] [facility], [address], [place], [address], 05/22/2024 10:02:34 CMP, serum or plasma 2023 024 [employer] [facility], [address], [place], [address], 05/29/2024 08:00:37 CK (creat ine kinase ), total, serum 2023 024 [employer] [facility], [address], [place], [address], 05/22/2024 08:17:53 CBC w/ auto diff 2023 024 [employer] [facility], [address], [place], [address], 06/12/2024 07:55:48 lipid panel, serum 2023 024 [employer] [facility], [address], [place], [address], 03/05/2024 08:07:09 CMP, serum or plasma 2023 024 [employer] [facility], [address], [place], [address], 03/05/2024 08:07:09 AST/SG OT (aspar willson aminot ransfe rase), serum or plasma 2023 024 [employer] [facility], [address], [place], [address], 02/14/2024 09:22:14 ALT (alvina ne aminot ransfe rase), serum or plasma 2023 024 [employer] [facility], [address], [place], [address], 01/23/2024 09:16:32 Referral None record ed. Procedures None record ed. Surgeries None record ed. Imaging electr ocardi ogram 2024 025 intersch In-Office Order, Internal Use Only DO Not Attach Compendium DO Not Attach Compendium, Do Not Delete/merge, [id number] 12/11/2024 10:22:00 US, echoca rdiogr am, transt horqing c, linda te, w/ color flow [facility] [address] [place], [address], 06/11/2024 07:35:27 Medication Orders metopr olol succin ate ER 25 mg tablet ,exten ded releas e 24 hr 2024 025 [facility] [address] [facility], [place], [address], 12/10/2024 16:33:18 rosuva statin 20 mg tablet 2024 025 [facility] [address] [facility], [place], [address], 12/10/2024 16:33:17 ezetim berenice 10 mg tablet 2024 025 [facility] [address] [facility], [place], [address], 12/10/2024 16:33:16 metopr olol succin ate ER 25 mg tablet ,exten ded releas e 24 hr 2023 024 [facility] [address] [facility], [place], [address], 02/22/2024 16:19:55 rosuva statin 5 mg tablet 2023 024 [facility] [address] [facility], [place], [address], 05/28/2024 16:27:15 rosuva statin 20 mg tablet [facility] [address] [facility] [place] [address] [address] [place], [address], 05/28/2024 16:24:01 Patient TargetsNo targets recorded. Patient InstructionsNo instructions recorded. Reason for Referral None Reported. Results Created Date Observation Date Name Description Value Unit Range Abnormal Flag Note LastModifiedBy Organization Detail LastModifiedTime 11/22/19 24 price vazquez am No observ ation record ed. [email or web address] In-Office Order Internal Use Only DO Not Attach Compendium DO Not Attach Compendium, Do Not Delete/merge, [id number] 11/22/2023 17:12:57 06/24/20 24 06/17/2024 US, echo ardio gram, trans thora cic, compl ete, w/ color flow No observ ation record ed. [facility] [address] [place], [place], [address], 06/24/2024 07:45:50 12/11/19 25 12/10/2024 elect rocar diogr am No observ ation record ed. [place] In-Office Order Internal Use Only DO Not Attach Compendium DO Not Attach Compendium, Do Not Delete/merge, [id number] 12/10/2024 16:34:50 12/11/19 elect rocar diogr am No observ ation record ed. [email or web address] Not Available 12/10 16:34:50 Result Notes None recorded. Problems Name Problem SNOMED Code Status Onset Date Resolution Date Notes Provider Name and Address Organization Details Recorded Time Raynaud's disease 407734203 Active 2023 Sloane Braga MD Attn: Britton hurst,[address] [place], [address], [facility] - [facility] 4 16:00:36 Mitral valve prolapse 319430210 Active 2023 Sloane Braga MD Attn: Britton hurst,[address] [place], [address], [facility] - [facility] 4 16:00:38 Pure hypercholes terolemia 009057680 Active 2023 Sloane Braga MD Attn: Britton hurst,[address] [place], [address], [facility] - [facility] 4 16:00:39 Atheroscler osis of coronary artery without angina pectoris 1392934558618 03 Active 2023 Sloane Braga MD Attn: Britton hurst,[address] [place], [address], [facility] - [facility] 4 16:00:40 Palpitation s 80262729 Active 2023 Sloane Braga MD Attn: Britton hurst,[address] [place], [address], [facility] - [facility] 4 16:00:41 Anemia 890040069 Active 2023 Sloane Braga MD Attn: Britton hurst,[address], [place], [address], [facility] 16:17:07 Problem Notes None recorded. Procedures Surgical History None recorded. Imaging Results Imaging Date Name Status LastModified by Organization Details LastModified Time 11/22/2023 electrocardiogram completed [facility]-Offi ce Order Internal Use Only DO Not Attach Compendium DO Not Attach Compendium, Do Not Delete/merge, [id number] 11/22/2023 17:12:57 06/17/2024 US, echocardiogram, transthoracic, complete, w/ color flow completed [facility] [address], [place], [address], 06/24/2024 07:45:50 12/10/2024 electrocardiogram completed [place] In-Offi ce Order Internal Use Only DO Not Attach Compendium DO Not Attach Compendium, Do Not Delete/merge, [id number] 12/10/2024 16:34:50 12/10/2024 electrocardiogram completed [email or web address] Informa tion not available 12/10/2024 16:34:50 Procedure Notes None recorded. Medical Equipment None Reported. Allergies No known drug allergies Medications Name Sig Start Date Stop Date Status Note LastModified by Organization Details LastModified Time atorvastatin 80 mg tablet TAKE 1 TABLET BY MOUTH ONCE DAILY 11/22 completed Not Available Not Available Not Available alendronate 70 mg tablet TAKE 1 TABLET BY MOUTH ONCE A WEEK . GIVE WITH WATER 30 MINUTES BEFORE FIRST FOOD/DRI NK/MEDIC ATION, AVOID LAYING DOWN FOR 30 MINUTES. 12/10 completed Not Available Not Available Not Available potassium chloride ER 10 mEq tablet,exten ded release TAKE 2 TABLETS BY MOUTH ONCE DAILY FOR 2 DAYS , THEN TAKE 1 ONCE DAILY 11/22 completed Not Available Not Available Not Available aspirin 81 mg tablet,delay ed release Take 1 tablet every day by oral route. active Not Available Not Available No t Available paroxetine 20 mg tablet TAKE 1 TABLET BY MOUTH ONCE DAILY active Not Available Not Available No t Available metoprolol succinate ER 25 mg tablet,exten ded release 24 hr Take 0.5 tablets every day by oral route. 2024 active Not Available Not Available Not Avai lable ezetimibe 10 mg tablet Take 1 tablet every day by oral route. 2024 active Not Available Not Available Not Avai lable rosuvastatin 5 mg tablet TAKE 1 TABLET BY MOUTH ONCE DAILY 05/28 completed Not Available Not Available Not Available rosuvastatin 20 mg tablet Take 1 tablet every day by oral route. 2024 active Not Available Not Available Not Avai lable mirabegron ER 50 mg tablet,exten ded release 24 hr TAKE 1 TABLET BY MOUTH ONCE DAILY active Not Available Not Available No t Available memantine 7 mg capsule sprinkle,ext ended release 24hr TAKE 1 BY MOUTH ONCE DAILY active Not Available Not Available No t Available Vitals Date Recorded Body height Body mass index (BMI) Body weight Heart rate Oxygen saturation Oxygen saturation in Arterial blood by Pulse oximetry Systolic blood pressure Diastolic blood pressure Provider Name and Address Organization Details Last Updated DateTime 4 158.75 cm 16.8 kg/m2 98018.5 3 g 50 /min 98 % 98 % 122 mm[Hg] 64 mm[Hg] Rosalva Richards MA [facility] 4 15:23:02 Date Recorded Body height Body mass index (BMI) Body weight Heart rate Respiratory rate Oxygen saturation Oxygen saturation in Arterial blood by Pulse oximetry Systolic blood pressure Diastolic blood pressure Provider Name and Address Organization Details Last Updated DateTime 4 158.75 cm 16.2 kg/m2 73352.0 3 g 53 /min 18 /min 98 % 98 % 130 mm[Hg] 66 mm[Hg] Connor valencia [place] - [facility] 4 16:01:08 Date Recorded Body height Body mass index (BMI) Body weight Heart rate Oxygen saturation Oxygen saturation in Arterial blood by Pulse oximetry Respiratory rate Systolic blood pressure Diastolic blood pressure Provider Name and Address Organization Details Last Updated DateTime 4 158.75 cm 15.7 kg/m2 15506.3 3 g 62 /min 98 % 98 % 18 /min 120 mm[Hg] 70 mm[Hg] Mookie Birmingham MA [place] - [facility] 4 15:43:01 Date Recorded Body height Body mass index (BMI) Body weight Heart rate Oxygen saturation Oxygen saturation in Arterial blood by Pulse oximetry Systolic blood pressure Diastolic blood pressure Provider Name and Address Organization Details Last Updated DateTime 5 158.75 cm 15 kg/m2 36320.3 2 g 63 /min 99 % 99 % 128 mm[Hg] 72 mm[Hg] Juliet Dickens MA [place] - [facility] 5 15:42:27 Social History Question Answer Notes LastModified by Organizat ion Details LastModified Time Tobacco Smoking Status Former Smoker Rosalva WILLIAN Richards null, [place] - [facility] 11/22/2023 15:18:06 What Was The Date Of Your Most Recent Tobacco Screening? 12/10/2024 Information not available 12/10/2024 Do You Use Any Illicit Or Recreational Drugs? No Information not available 12/10/2024 Do You Or Have You Ever Used Any Other Forms Of Tobacco Or Nicotine? No Information not available 12/10/2024 Sex: Female Functional Status None recorded. Mental Status None recorded. Family History Nothing Reported. Medical History No medical history recorded. Gynecological HistoryNo gynecological history recorded. Obstetrics History GPAL:G 0 P 0 0 0 0 Immunizations Vaccine Type Date Status Note Provider Nam e and Address Organization Details Recorded Time Influenza, high-dose, quadrivalent, PF 4 completed Mookie [place], [place] [facility] 05/28/2024 15:38:46 Influenza, high-dose, quadrivalent, PF 0 completed Mookie [place], [place] [facility] 05/28/2024 15:38:46 Influenza, high-dose, quadrivalent, PF 2 completed Mookie [place], [place] [facility] 05/28/2024 15:38:46 COVID-19, mRNA, LNP-S, PF, 100 mcg/0.5mL dose or 50 mcg/0.25mL dose 1 completed Mookie Birmingham [place], [place] [facility] 05/28/2024 15:38:46 COVID-19, mRNA, LNP-S, PF, 100 mcg/0.5mL dose or 50 mcg/0.25mL dose 1 completed WILLIAN Choi, [place] - [facility] 05/28/2024 15:38:46 pneumococcal polysaccharide PPV23 7 completed WILL[place], [place] [facility] 05/28/2024 15:38:46 Pneumococcal conjugate PCV 13 6 completed [place] [facility] 05/28/2024 15:38:46 Influenza, high-dose, trivalent, PF 6 [place] [facility] 05/28/2024 15:38:46 Influenza, high-dose, trivalent, PF 8 [place] [facility] 05/28/2024 15:38:46 Influenza, high-dose, trivalent, PF 7 [place] [facility] 05/28/2024 15:38:46 Influenza, high-dose, trivalent, PF 9 [place] [facility] 05/28/2024 15:38:46 Influenza, split virus, quadrivalent, PF 1 completed WILL[place] [facility] 05/28/2024 15:38:46 Past Encounters Encounter ID Performer Location Encounter Start Date Encounter Closed Date Diagnosis/Indication Diagnosis SNOMED-CT Code Diagnosis ICD10 Code Diagnosis Note [id number] Sloane Braga MD [facility] [address] [place] [address] 11/22/2023 15:07:31 11/23/2023 09:41:34 Atherosclerosis of coronary artery without angina pectoris 5596272243 02797 I25.10 Palpitations 73644349 R0 0.2 Mitral valve prolapse 40 5408811 I34.1 Pure hypercholesterolemia 159250160 E78.00 Raynaud's disease 797511 006 I73.00 Liver enzy mes level above reference range 190647826 R74.01 [id number] Sloane Braga MD [facility] [place] [facility] [address] [place] [address] 02/22/2024 15:52:02 02/23/2024 11:08:34 Atherosclerosis of coronary artery without angina pectoris 7311857269 86287 I25.10 Mitral valve prolapse 40 7670333 I34.1 Palpitations 90759364 R0 0.2 Pure hypercholesterolemia 619186258 E78.00 Raynaud's disease 239117 006 I73.00 Anemia 677614676 D64.9 Aspartate transaminase level above reference range 8112039271 04514 R74.01 [id number] Sloane Braga MD [facility] [place] [facility] [address] [place] [address] 05/28/2024 15:13:30 06/03/2024 15:00:18 Anemia 372178516 D64.9 Pure hypercholesterolemia 699107553 E78.00 Atheroscle rosis of coronary artery without angina pectoris 2972940788 94715 I25.10 Palpitations 90285251 R0 0.2 Raynaud's disease 347479 006 I73.00 Long-term current use of antiplatelet drug 6561222189 19897 Z79.02 [id number] Sloane Braga MD [facility] [place] [facility] [address] [place] [address] 12/10/2024 15:31:54 12/11/2024 10:21:59 Essential hypertension 12108831 I10 Underweight 929998735 R6 3.6 Atheroscle rosis of coronary artery without angina pectoris 3986096925 14727 I25.10 Mitral valve prolapse 40 3715058 I34.1 Palpitations 56252168 R0 0.2 Pure hypercholesterolemia 996813502 E78.00 Raynaud's disease 773211 006 I73.00 Long-term current use of antiplatelet drug 8811114755 04036 Z79.02 Health Concerns Section Related Observation LastModified by Organization Detai ls LastModified Time None Recorded Concern Status LastModified by Organization Details LastModified Time None Recorded Advance Directives Directive None Recorded Payers Encounter Date Sequence Insurance Name Policy Number Policy Ramon Covered Member ID Ramon Member ID Guarantor Name 11/22/2023 1 [employer] (MEDICARE REPLACEMENT PPO) [id number] 1 Taylor Grimes [id number] Taylor Grimes 02/22/2024 1 [employer] (MEDICARE REPLACEMENT PPO) [id number] Taylor Grimes [id number] Taylor Grimes 05/28/2024 1 [employer] (MEDICARE REPLACEMENT PPO) [id number] 1 Taylor Grimes [id number] Taylor Grimes 12/10/2024 1 [employer] (MEDICARE REPLACEMENT PPO) [id number] 1 Taylor Grimes [id number] Taylor Grmies Notes Date Note Type Note Provider Name and Address Organization Details Recorded Time 11/22/2023 text/html Taylor is a 78 year old female here for a follow up visit. She is not doing regular exercise. She remains off of potassium and her potassium is 4.6. She has not had any dizzy spells of late. Her bp at home typically runs 100-110 bpm systolic. She eats fairly healthy and eats vegetables and avoids beef or pork and does not eat regularly eat cheese. She is compliant with her medications. She was examined by an insurance company and put on a 14 day event monitor for unclear reasons as she has no palpitations and no neurologic complaints. She denies any side effects from her medications. She denies any side effects from her medications. She denies any chest pain, dyspnea, paroxysmal nocturnal dyspnea, orthopnea, edema, syncope or pedal edema Sloane Braga MD Attn: [address] [facility], [place], [address], [place] [facility] 11/22/2023 16:08:07 02/22/2024 text/html Taylor is a 78 year old female here for a follow up visit. at the time of her last visit I discontinued atorvastatin 10 mg daily and placed her on rosuvastatin 20 mg daily and she wants again had elevated liver transaminases on January 21 so I repeated her liver profile on February 12 and it is now normal off statin therapy. She has not noticed any palpitations of late. She is tolerating her metoprolol succinate 12.5 mg daily. her blood pressure at home tends to run about 105/60 mmHg. She denies any dizzy spells. She eats fairly healthy and eats vegetables and avoids meats but does like cheese. She is compliant with her medications. A 14 day event monitor which was placed by her insurance company I have asked her to try to get me a report as I do not have a report of the results. She denies any side effects from her medications. She denies any side effects from her medications. She denies any chest pain, dyspnea, paroxysmal nocturnal dyspnea, orthopnea, edema, syncope or pedal edema Sloane Braga MD Attn: [address] [place], [address], [facility] 02/22/2024 16:20:05 05/28/2024 text/html Taylor is a 78 year old female here for a follow up visit. She has not had any dizzy spells. She has not noticed any palpitations of late and remains on metoprolol succinate 12.5 mg daily. her blood pressure at home tends to run about 107/60s mmHg. She eats fairly healthy and eats vegetables and avoids meats but does like cheese and has a good appetite but her weight is down 2 pounds since her last visit about 3 months ago I still have not received the 14 day holter monitor which her insurance company placed on her but she tells me it was fine. She is not doing regular exercise but remains active without any chest pain or shortness of breath. She denies any side effects from her medications. She denies any side effects from her medications. She denies any chest pain, dyspnea, paroxysmal nocturnal dyspnea, orthopnea, edema, syncope or pedal edema Sloane Braga MD Attn: Accounting[address] [place], [address], [facility] 05/28/2024 16:31:11 12/10/2024 text/html Taylor is a 78 year old female here for a follow up visit. The time of her last visit her LDL was not at ideal goal and she admits she was eating more cheese and I asked her to try to reduce that. Her LDL is now much improved down from 77 to 52 mg/dL and she remains on rosuvastatin 20 mg daily in his Ezetimibe 10 mg daily. Her weight is down 4 lb since her last visit about 6 months ago but she tells me per her scale she has not lost any weight she weighs 83.6 lb and has a BMI of 15. She has not had anymore dizzy spells she takes her time when she gets up. She has not felt any palpitations of late and remains on metoprolol succinate 12.5 mg daily. She has eliminated the cheese on her broccoli and Shutter and replaced it with chicken broth. She is not doing regular exercise but is able to do whatever she wants to do whenever she wants to do it in his not had any chest pain or shortness of breath. She denies any side effects from her medications. She denies any side effects from her medications. She denies any chest pain, dyspnea, paroxysmal nocturnal dyspnea, orthopnea, edema, syncope or pedal edema Sloane Braga MD Attn: [address] [place], [address], [facility] 12/10/2024 16:34:12 OBGyn Episode No OBEpisode recorded.
--- OUTSIDE RECORDS SUMMARY | 2024-12-23 14:13 | XMS_ITS | Referral Summary ---
Author Organization [facility] Address [address] [place] [address] Care Team Providers Care [employer] Demonstrator Name Role Phone Allan Fu MD Primary [...] extended release tabletIndications:Coron hardik artery disease involving [place] coronary artery of [place] heart without angina pectoris,Dyslipidemia,P alpitations,Pure hypercholesterolemia Take 1/2 (one-half) tablet by mouth once daily 45 tablet 01/31/20 24 Active Active Problems Problem Noted Date Diagnosed Date Hypokalemia 11/09/2022 Pure hypercholesterolemia 06/29/2022 Anemia 06/29/2022 Hyponatremia 06/29/2022 Dizzy spells 08/14/2019 Chest pain 08/14/2019 Coronary artery disease invo lving [place] coronary artery of [place] heart without angina pectoris 02/18/2016 Overview (08/01/2019): [...] metoprolol, fall in January of this year Social History Tobacco Use Types Packs/Day Years Used Date Smoking Tobacco: Former Smokeless Tobacco: Never Personal Safety Answer Date Recorded Getting School Help Needed Not on file 11/04 Comments Unknown Sex and Gender Information Value Date Recorded Sex Assigned at Not on file 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 Gender Identity Not on file Sexual Orientation Not on file Last Filed Vital Signs Vital Sign Reading [...] 06/29/2022 3:17 PM CDT Plan of Treatment Not on file Insurance T MEDICARE Advance Directives For more information, please contact: [phone] Documents on File Type Date Recorded Patient Sales Representative Publications Expl anation ADVANCE DIRECTIVE 01/14/2015 12:00 AM LEANDRO R OF [employer] FINANCIAL/MEDICAL Care Teams [employer] Dem[employer] Relationship Specialty Start Date End Date Allan Fu MD [address] [facility] [address] [place] [address] PCP - General Family Medicine 03/29/19
--- OUTSIDE RECORDS SUMMARY | 2024-12-23 14:13 | XMS_ITS | Encounter Summary ---
Author Organization [facility] Address [address] [place] [address] Care Team Providers Care Evaluation Assistant Name Role Phone Allan Fu MD Primary Care Provider Encounter Details Date Type Department Care Team (Late st Contact Info) Description 01/09/2015 Orders Only [facility] [address] [place] [address] Scanning, Provider Social History Tobacco Use Types Packs/Day Years Used Date Smoking Tobacco: Never Assessed Comments Unknown Sex and Gender Information Value Date Recorded Sex Assigned at Not on file Legal Sex Female 10:46 PM [employer] Gender Identity Not on file Sexual Orientation Not on file documented as of this encounter Plan of Treatment Not on file documented as of this encounter Procedures Procedure Name Priority Date/Time Associated Diagnosis Comments CARDIOLOGY DOCUMENT SCAN 01/09/2015 documented in this encounter Results * SCAN - CARDIOLOGY (01/09/2015) Anatomical Region Laterality Modality Other us Provider Scanning CV CARDIAC SERVICES PROCEDURES Final Result documented in this encounter Visit Diagnoses Not on filedocumented in this encounter Care Teams Evaluation Assistant Relationship Specialty Start Date End Date Allan Fu MD [address] [place] [address] PCP - General Family Medicine 03/29/19 documented as of this encounter
== END 2024-12-23 13:04 | disposition home or self-care (01) ==
LOC: ANHAUDIO 13:04
PROVIDERS: PCP Family Medicine; Visit Provider Physician Assistant Medical
DX: H90.3 Sensorineural hearing loss, bilateral (principal)
CPT/HCPCS: 92557; 92567

== ENCOUNTER 2025-03-27 14:00 | Outpatient (RCR) | payer MEDICARE, SELFPAY | END 2025-03-27 23:59 | disposition home or self-care (01) | LOC: ANHAUDIO 14:00 | PROVIDERS: PCP Family Medicine; Visit Provider Family Medicine | DX: Z46.1 Encounter for fitting and adjustment of hearing aid (principal) | CPT/HCPCS: 99199; V5261 ==